=== PATIENT | male | born 1960 | race Caucasian/White ===

== ENCOUNTER 2016-10-25 19:01 | Emergency (ER) | payer BC, OTHER ==
[~2016-10-25 19:01] MED LIST: ALPH1CAP2 PO; HUMALOG SQ; LEVO200T4 PO; NIAC500T5 PO; OMEGCAP PO; RAMI2.5C PO; VITA500030 CHEW; ZOLO100T PO
[2016-10-25] MEDS ORDERED: CYCL1TAB29 PO (19:11)
[2016-10-25 19:12] VITALS: BP 139/69; PULSE 87; RESP 20; TEMP 98; O2SAT 99
[2016-10-25] MEDS ORDERED: DIPHTH/TETANUS/ACEL PERTUSSIS (BOOSTER) 0.5 ML VIAL/PFS IM ONE (19:30)
[2016-10-25] MEDS ORDERED: MORPHINE SULFATE 4 MG/ML INJ IV PUSH ONE (19:30)
[2016-10-25] MEDS ORDERED: LIDOCAINE HCL 2% 20 ML VIAL INFIL ONE (19:30)
[2016-10-25] MEDS ORDERED: AMPICILLIN-SULBACTAM INJ 3 GM in SODIUM CHLORIDE 0.9% INJ 100 ML IV ONE (19:30)
--- NOTE | 2016-10-25 21:39 | PD ---
HPI Chief Complaint: Bite or Sting Time Seen by Provider: 19:10 Travel History International Travel<30 days: No Contact w/Intl Traveler<30days: No Traveled to known affect area: No History of Present Illness HPI Patient is a 55-year-old male comes in after he was attacked [place] a dog [place] the dog park. He says he was just walking when 2 dogs came up to him and bit him. He sustained a large bite to his right leg as well as injury to his right thumb and his back. He denies any other injuries. He does not know if the dog was vaccinated. He does not know his last tetanus vaccine was. PFSH Past Medical History Cancer: No Cardiovascular Problems: No Diabetes: Yes Patient Takes Glucophage: No Endocrine: Yes Genitourinary: No Hepatitis: No Hiatal Hernia: No Immune Disorder: No Musculoskeletal: Yes ("BACK ISSUES") Neurologic: No Psychiatric: No Reproductive: No Respiratory: No Thyroid Disease: Yes Past Surgical History Abdominal Surgery: No AICD: No Body Medical Devices: N/A Cardiac Surgery: No Ear Surgery: No Eye Surgery: No Genitourinary Surgery: No Joint Replacement: No Oral Surgery: Yes (CROWNS) Pacemaker: No Thoracic Surgery: No Other Surgery: Yes Social History Alcohol Use: No Tobacco Use: No Substance Use: No Allergies-Medications (Allergen,Severity, Reaction): Coded Allergies: Sulfa (Verified Allergy, Mild, nausea, 10/25/16) Reported Meds & Prescriptions Reported Meds & Active Scripts Active Augmentin (Amoxicillin-Clavulanate) 875-125 mg Tab 875 Mg PO BID 10 Days not for use in CrCl <30 ml/min. Reported Flexeril (Cyclobenzaprine HCl) 10 Mg Tab 10 Mg PO TID Humalog Inj (Insulin Human Lispro) 1,000 Unit/10 Ml Vial 5-25 Units SQ ACHS Max dose at bedtime:( )units; sugars < 70,(0)units; sugars 150-199,(5)units; sugars 200-249,(10)units; sugars 250-299,(15)units; sugars 300-349,(20)units; sugars more than 349,(25)units. Zoloft (Sertraline HCl) 100 Mg Tab 100 Mg PO DAILY Ramipril 2.5 Mg Cap 2.5 Mg PO DAILY [place]-3 Fish Oil/Vitamin (Fish Oil-Cholecalciferol) 1,000-1,000 Mg Cap 1 Cap PO DAILY Niacin 500 Mg Tab 500 Mg PO BID Levothyroxine (Levothyroxine Sodium) 200 Mcg Tab 200 Mcg PO DAILY Vitamin D3 (Cholecalciferol) 5,000 Unit Chew 5,000 Units CHEW DAILY Alpha Lipoic Acid 100 Mg Cap 100 Mg PO DIRECTED Review of Systems Except as stated in HPI: all other systems reviewed are Neg General / Constitutional: No: Fever HENT: No: Headaches, Lightheadedness Cardiovascular: No: Chest Pain or Discomfort Respiratory: No: Shortness of Breath Gastrointestinal: No: Nausea, Vomiting Genitourinary: No: Flank Pain Musculoskeletal: Positive: Pain, No: Weakness Skin: Positive Other (lacerations) Neurologic: No: Weakness Physical Exam Narrative GENERAL: Awake and alert, in mild distress due to pain. SKIN: Warm and dry. Large triangular laceration to the medial aspect of the right calf with a 5 cm linear laceration to the posterior aspect of the left calf. Abrasion to the right side of the back. Superficial laceration to the right thumb. HEAD: Atraumatic. Normocephalic. EYES: Pupils equal and round. No scleral icterus. ENT: Mucous membranes pink and moist. NECK: Trachea midline. No JVD. CARDIOVASCULAR: Regular rate and rhythm. No murmur appreciated. RESPIRATORY: No accessory muscle use. Clear to auscultation. Breath sounds equal bilaterally. MUSCULOSKELETAL: No obvious deformities. No clubbing. No cyanosis. No edema. No tendon involvement seen through the laceration. Able to fully dorsiflex and plantar flex his right foot. Pedal pulses intact. NEUROLOGICAL: Awake and alert. No obvious cranial nerve deficits. Motor grossly within normal limits. Normal speech. PSYCHIATRIC: Appropriate mood and affect; insight and judgment normal. Data Data Last Documented VS Vital Signs Date Time Temp Pulse Resp B/P Pulse Ox O2 Delivery O2 Flow Rate FiO2 10/25/16 19:15 87 10/25/16 19:12 98.0 20 139/69 99 Orders Ampicillin-Sulbactam Inj (Unasyn Inj) (10/25/16 19:30) Bdra-Zzw-Kwsqgi (Booster) Inj (Boostrix (10/25/16 19:30) Morphine Inj (Morphine Inj) (10/25/16 19:30) Lidocaine 2% Inj (Xylocaine 2% Inj) (10/25/16 19:30) Tibia/Fibula (Ap/Lat) (10/25/16 ) Lidocai-Epi 1%-1:100,000 Inj (Xylocaine- (10/25/16 21:45) Morphine Inj (Morphine Inj) (10/25/16 21:45) Rabies Immune Globulin Inj (Hyperrab S/D (10/25/16 22:00) Rabies Vaccine Human Cell Inj (Imovax In (10/25/16 22:00) Calcium Carbonate Chew (Tums Chew) (10/25/16 22:15) MDM Medical Decision Making Medical Screen Exam Complete: Yes Emergency Medical Condition: Yes Differential Diagnosis Laceration versus dog bite versus infected wound Narrative Course Patient is a 55-year-old male comes in after 2 dogs bit him. Exam shows large lacerations to the right leg, with superficial wounds to his right thumb and that the right side of his back. X-ray performed of the right leg shows no retained foreign bodies. Patient given a dose of Unasyn, tetanus updated. Given morphine for pain. Lacerations loosely approximated by TRIPP Vincent. Patient advised to return in 2 days for wound check. Given rabies vaccine as well as rabies immunoglobulin. Patient given scheduled to return for remaining rabies vaccines. Given a prescription for Augmentin. Advised to take all of the antibiotic. Advised to return immediately for any signs of infection to the leg. Advised to return for any worsening symptoms. Diagnosis Primary Impression: Dog bite Qualified Code: W54.0XXA - Dog bite, initial encounter Additional Impression: Laceration Patient Instructions: General Instructions, Laceration (ED), Rabies Vaccine (ED ) Additional Instructions: Return in 3 days for a wound check and second rabies vaccine. Return immediately if the wound becomes red, more painful, warm to the touch or is oozing pus. You need to return in 3 days, 7, days, 14 days for additional rabies vaccines. Return as needed for any worsening symptoms. Make sure you take all of your antibiotics. Scripts Oxycodone-Acetaminophen (Percocet)5-325 mg Tab1 Tab PO Q6H PRN (PAIN) #10 TAB Ref 0 Prov:Irena Fonseca MD 10/26/16 Amoxicillin-Clavulanate (Augmentin)875-125 mg [id number] Mg PO BID 10 Days Ref 0 not for use in CrCl <30 ml/min. Prov:Irena Fonseca MD 10/25/16 Disposition: 01 DISCHARGE HOME Condition: Stable Irena Fonseca MD Oct 25, 2016 21:39
[2016-10-25] MEDS ORDERED: LIDOCAINE 1%/EPINEPHrine 1:100,000 SOLN 20 ML VIAL INFIL ONE (21:45)
[2016-10-25] MEDS ORDERED: MORPHINE SULFATE 8 MG/ML INJ IV PUSH ONE (21:45)
[2016-10-25] MEDS ORDERED: RABIES IMMUNE GLOBULIN INJ 1,500 UNITS/10 ML VIAL IM ONE (22:00)
[2016-10-25] MEDS ORDERED: RABIES VACCINE HUMAN DIPL CELL 2.5 UNITS/ML SYRINGE IM ONE (22:00)
[2016-10-25] MEDS ORDERED: CALCIUM CARBONATE 500 MG CHEWABLE TAB CHEW ONE (22:15)
--- NOTE | 2016-10-25 22:37 | RADRPT ---
EXAM DATE/TIME: 10/25/2016 21:21 [facility] COMPARISON: No previous studies available for comparison. INDICATIONS : Laceration, Patient bitten by a pitbull. MEDICAL HISTORY : None. SURGICAL HISTORY : None. ENCOUNTER: Initial ACUITY: 1 day PAIN SCORE: 6/10 LOCATION: Right Tib/Fib FINDINGS: Two view examination of the right tibia demonstrates no evidence of fracture or dislocation. Bony mi neralization is normal. The soft tissue structures are lacerated medially CONCLUSION: 1. Laceration is present medial calf. No radiopaque foreign body or acute bony abnormality. Ethan Obrien MD on October 25, 2016 at 22:35 Board Certified Radiologist. This report was verified electronically.
--- NOTE | 2016-10-25 22:49 | PD ---
Physical Exam Time Seen by Provider: 22:00 Data Data Last Documented VS Vital Signs Date Time Temp Pulse Resp B/P Pulse Ox O2 Delivery O2 Flow Rate FiO2 10/25/16 19:15 87 10/25/16 19:12 98.0 20 139/69 99 Orders Ampicillin-Sulbactam Inj (Unasyn Inj) (10/25/16 19:30) Iezr-Hfj-Rnxccx (Booster) Inj (Boostrix (10/25/16 19:30) Morphine Inj (Morphine Inj) (10/25/16 19:30) Lidocaine 2% Inj (Xylocaine 2% Inj) (10/25/16 19:30) Tibia/Fibula (Ap/Lat) (10/25/16 ) Lidocai-Epi 1%-1:100,000 Inj (Xylocaine- (10/25/16 21:45) Morphine Inj (Morphine Inj) (10/25/16 21:45) Rabies Immune Globulin Inj (Hyperrab S/D (10/25/16 22:00) Rabies Vaccine Human Cell Inj (Imovax In (10/25/16 22:00) Calcium Carbonate Chew (Tums Chew) (10/25/16 22:15) MDM Medical Record Reviewed: Yes Supervised Visit with COLLIN: No Narrative Course I have been asked to repair this patient's dog bite wound on the right calf. On examination he has a 10 cm L-shaped laceration to the medial right, 5 cm linear laceration to the posterior right calf. There is a small amount of fascial damage on the medial laceration muscle belly appears intact. Tibia- fibula x-ray reveals no radiopaque foreign body. The lacerations were irrigated with several liters of normal saline and debrided during wound repair. The wounds were loosely closed. Patient verbally consented for laceration repair. Please see sravan procedure Notes. Procedures Procedure Narrative LACERATION LOCATION: Medial right calf LENGTH: 10 cm NUMBER OF STITCHES/CARL: 7 REPAIR: The area of the laceration was prepped with Betadine and sterilely draped. The laceration was infiltrated with percent lidocaine with epinephrine. The wound was copiously irrigated and explored without evidence of foreign body, tendon injury or neurovascular injury. The wound was closed using 4-0 prolene simple interrupted. This was a single layer repair. A sterile dressing was applied. The patient was advised to keep the dressing clean and dry. Patient tolerated the procedure well. LACERATION LOCATION: Medial right calf LENGTH: 5 cm NUMBER OF STITCHES/CARL: 4 REPAIR: The area of the laceration was prepped with Betadine and sterilely draped. The laceration was infiltrated with percent lidocaine with epinephrine. The wound was copiously irrigated and explored without evidence of foreign body, tendon injury or neurovascular injury. The wound was closed using 4-0 prolene simple interrupted. This was a single layer repair. A sterile dressing was applied. The patient was advised to keep the dressing clean and dry. Patient tolerated the procedure well. Kyrie Interiano Oct 25, 2016 22:49
[2016-10-25] MEDS ORDERED: AUGM875T PO (23:04)
[2016-10-26] MEDS ORDERED: PERC5TAB12 PO (00:06)
== END 2016-10-26 00:19 | disposition home or self-care (01) ==
LOC: NEPC 19:01
DX: S81.851A Open bite, right lower leg, initial encounter (principal); S61.011A Laceration without foreign body of right thumb without damage to nail, initial encounter; S30.810A Abrasion of lower back and pelvis, initial encounter; Z23 Encounter for immunization; W54.0XXA Bitten by dog, initial encounter
CPT/HCPCS: 12005; 73590; 90375; 90471; 90472; 90675; 90715; 96365; 96372; 96375; 96376; 99283; J0295; J2270

== ENCOUNTER 2016-10-28 11:15 | Emergency (ER) | payer BC ==
[~2016-10-28] VITALS: Ht 177.8 cm; Wt 80.0 kg
[~2016-10-28 11:15] MED LIST changes: +AUGM875T PO; +CYCL1TAB29 PO; +PERC5TAB12 PO
[2016-10-28 11:16] VITALS: BP 128/62; PULSE 98; RESP 12; TEMP 97.2; O2SAT 100
--- NOTE | 2016-10-28 12:39 | PD ---
HPI Chief Complaint: Bite or Sting Time Seen by Provider: 12:35 Travel History International Travel<30 days: No Contact w/Intl Traveler<30days: No Traveled to known affect area: No History of Present Illness HPI 55-year-old male presents to the emergency department for wound recheck and day 3 rabies vaccination after being bit by a dog on Thursday and being seen here for repair of the laceration and initiation of rabies protocol. Patient denies fever, chills, nausea, vomiting. Denies paresthesias, loss of sensation, decreased range of motion, decreased strength to the affected extremity. Denies purulent drainage, erythema to the affected site. Has been cleaning the laceration sites and applying antibiotic cream and keeping the area covered. Has been taking Augmentin that he was prescribed as prescribed. History of type 1 diabetes. Allergies to sulfa. No other modifying factors or associated signs and symptoms. PFSH Past Medical History Cancer: No Cardiovascular Problems: No Diabetes: Yes (TYPE 1) Endocrine: Yes Genitourinary: No Hepatitis: No Hiatal Hernia: No Immune Disorder: No Musculoskeletal: Yes ("BACK ISSUES") Neurologic: No Psychiatric: No Reproductive: No Respiratory: No Thyroid Disease: Yes Past Surgical History Abdominal Surgery: No AICD: No Body Medical Devices: N/A Cardiac Surgery: No Ear Surgery: No Eye Surgery: No Genitourinary Surgery: No Joint Replacement: No Oral Surgery: Yes (CROWNS) Pacemaker: No Thoracic Surgery: No Other Surgery: Yes Social History Alcohol Use: No Tobacco Use: No Substance Use: No Allergies-Medications (Allergen,Severity, Reaction): Coded Allergies: Sulfa (Verified Allergy, Mild, nausea, 10/25/16) Reported Meds & Prescriptions Reported Meds & Active Scripts Active Percocet (Oxycodone-Acetaminophen) 5-325 mg Tab 1 Tab PO Q6H PRN Augmentin (Amoxicillin-Clavulanate) 875-125 mg Tab 875 Mg PO BID 10 Days not for use in CrCl <30 ml/min. Reported Flexeril (Cyclobenzaprine HCl) 10 Mg Tab 10 Mg PO TID Humalog Inj (Insulin Human Lispro) 1,000 Unit/10 Ml Vial 5-25 Units SQ ACHS Max dose at bedtime:( )units; sugars < 70,(0)units; sugars 150-199,(5)units; sugars 200-249,(10)units; sugars 250-299,(15)units; sugars 300-349,(20)units; sugars more than 349,(25)units. Zoloft (Sertraline HCl) 100 Mg Tab 100 Mg PO DAILY Ramipril 2.5 Mg Cap 2.5 Mg PO DAILY [place]-3 Fish Oil/Vitamin (Fish Oil-Cholecalciferol) 1,000-1,000 Mg Cap 1 Cap PO DAILY Niacin 500 Mg Tab 500 Mg PO BID Levothyroxine (Levothyroxine Sodium) 200 Mcg Tab 200 Mcg PO DAILY Vitamin D3 (Cholecalciferol) 5,000 Unit Chew 5,000 Units CHEW DAILY Alpha Lipoic Acid 100 Mg Cap 100 Mg PO DIRECTED Review of Systems Except as stated in HPI: all other systems reviewed are Neg Physical Exam Narrative GENERAL: Well-nourished, well-developed male patient, in no acute distress; afebrile, nontoxic-appearing SKIN: Warm and dry. Lacerations to right calf are well approximated and sutures intact; without erythema, edema, drainage. No signs of infection. The right lower extremity is supple and non-tense with 2+ pedal pulse and sensory intact. HEAD: Atraumatic. Normocephalic. EYES: Pupils equal and round. No scleral icterus. No injection or drainage. ENT: Mucosa pink and moist. Airway patent. NECK: Trachea midline. CARDIOVASCULAR: Regular rate. RESPIRATORY: No accessory muscle use. GASTROINTESTINAL: Flat. MUSCULOSKELETAL: No obvious deformities. No clubbing. No cyanosis. No edema. NEUROLOGICAL: Awake and alert. Oriented 3. No obvious cranial nerve deficits. Motor grossly within normal limits. Normal speech. PSYCHIATRIC: Appropriate mood and affect; insight and judgment normal. Data Data Last Documented VS Vital Signs Date Time Temp Pulse Resp B/P Pulse Ox O2 Delivery O2 Flow Rate FiO2 10/28/16 12:35 77 18 10/28/16 11:16 97.2 128/62 100 Room Air Orders Rabies Vaccine Human Cell Inj (Imovax In (10/28/16 12:45) Wound Care (10/28/16 12:34) MDM Medical Decision Making Medical Screen Exam Complete: Yes Emergency Medical Condition: Yes Medical Record Reviewed: Yes Differential Diagnosis Encounter for wound recheck, encounter for repeated menstruation of rabies vaccination, dog bite Narrative Course 55-year-old male presents for wound recheck and day 3 rabies vaccination administration after being bit by dog on Thursday. The laceration sites are well approximated and sutures intact and without signs of infection. Patient is afebrile. He has prescription for Augmentin and has been taking it as prescribed. He denies fever, chills, nausea, vomiting. Concerta patient to continue Augmentin as prescribed and he verbalized understanding and agreement. Day 3 rabies vaccination ordered. Instructed patient to return for day 14 rabies vaccination and he verbalizes understanding and agreement. Wound care provided in the ER. Patient is medically cleared and stable for discharge. Discussed reasons to return to the emergency department. Instructed patient to follow up with primary care provider. Patient agrees with treatment plan. The patients vital signs are stable and the patient is stable for outpatient follow- up and treatment. Patient discharged home, stable and in no acute distress. Diagnosis Primary Impression: Encounter for repeat administration of rabies vaccination Additional Impression: Encounter for wound re-check Referrals: Primary Care Physician Patient Instructions: Acute Wound Care (ED), Animal Bite (ED), Care For Your Stitches (ED), General Instructions Additional Instructions: Return to emergency department or follow-up at the health Department on day 14 for rabies vaccination Keep area clean and dry Ibuprofen or Tylenol as directed and as needed for pain and inflammation Ice pack to area as needed to decrease pain Return to the emergency department or follow-up with primary care provider between 14 and 28 days from today of suturing for suture removal Follow up with primary care provider Return to the emergency department immediately with worsening of symptoms, particularly if reddened streaks up or down the affected extremity from the suture site, fever, numbness/tingling in the affected extremity, loss of sensation in the affected extremity, severe swelling of the affected Med/Other Pt SpecificInfo: No Change to Meds Disposition: 01 DISCHARGE HOME Condition: Stable Julia Noe Oct 28, 2016 12:39
[2016-10-28] MEDS ORDERED: RABIES VACCINE HUMAN DIPL CELL 2.5 UNITS/ML SYRINGE IM ONE (12:45)
== END 2016-10-28 13:39 | disposition home or self-care (01) ==
LOC: NEPB 11:15
DX: S81.851D Open bite, right lower leg, subsequent encounter (principal); W54.0XXD Bitten by dog, subsequent encounter; Z23 Encounter for immunization
CPT/HCPCS: 90471; 90675

== ENCOUNTER 2016-11-01 09:47 | Emergency (ER) | payer BC ==
[~2016-11-01] VITALS: Ht 177.8 cm; Wt 77.0 kg
[2016-11-01 09:54] VITALS: BP 119/71; PULSE 98; RESP 16; TEMP 98.7; O2SAT 98
[2016-11-01] MEDS ORDERED: RABIES VACCINE CHICK EMB INJ 2.5 UNITS/ML SYR IM ONE (10:15)
--- NOTE | 2016-11-01 10:19 | PD ---
HPI Chief Complaint: Wound/Suture/Staple Re-Check Time Seen by Provider: 10:04 Travel History International Travel<30 days: No Contact w/Intl Traveler<30days: No Traveled to known affect area: No History of Present Illness HPI Patient is a 55-year-old male who presents to emergency room for reevaluation of dogbite. Patient was bitten by a pit bull on Thursday and suffered a laceration to his right calf. Patient had sutures placed and was started on Augmentin. Rabies vaccinations were initiated, patient here for wound check and for rabies vaccination. Patient did have his day 3 vaccination, patient here for his day 7 vaccination. Patient with no fevers or chills. Patient with no other complaints. PFSH Past Medical History Cancer: No Cardiovascular Problems: No Diabetes: Yes (TYPE 1) Patient Takes Glucophage: No Endocrine: Yes Gastrointestinal Disorders: No Genitourinary: No Hepatitis: No Hiatal Hernia: No Hypertension: No Immune Disorder: No Musculoskeletal: Yes ("BACK ISSUES") Neurologic: No Psychiatric: No Reproductive: No Respiratory: No Immunizations Current: Yes Thyroid Disease: Yes Influenza Vaccination: No Past Surgical History Abdominal Surgery: No AICD: No Body Medical Devices: N/A Cardiac Surgery: No Ear Surgery: No Eye Surgery: No Genitourinary Surgery: No Joint Replacement: No Neurologic Surgery: No Oral Surgery: Yes (CROWNS) Pacemaker: No Thoracic Surgery: No Other Surgery: Yes Social History Alcohol Use: No Tobacco Use: No Substance Use: No Allergies-Medications (Allergen,Severity, Reaction): Coded Allergies: Sulfa (Verified Allergy, Mild, nausea, 11/01/16) Reported Meds & Prescriptions Reported Meds & Active Scripts Active Percocet (Oxycodone-Acetaminophen) 5-325 mg Tab 1 Tab PO Q6H PRN Augmentin (Amoxicillin-Clavulanate) 875-125 mg Tab 875 Mg PO BID 10 Days not for use in CrCl <30 ml/min. Reported Flexeril (Cyclobenzaprine HCl) 10 Mg Tab 10 Mg PO TID Humalog Inj (Insulin Human Lispro) 1,000 Unit/10 Ml Vial 5-25 Units SQ ACHS Max dose at bedtime:( )units; sugars < 70,(0)units; sugars 150-199,(5)units; sugars 200-249,(10)units; sugars 250-299,(15)units; sugars 300-349,(20)units; sugars more than 349,(25)units. Zoloft (Sertraline HCl) 100 Mg Tab 100 Mg PO DAILY Ramipril 2.5 Mg Cap 2.5 Mg PO DAILY [place]-3 Fish Oil/Vitamin (Fish Oil-Cholecalciferol) 1,000-1,000 Mg Cap 1 Cap PO DAILY Niacin 500 Mg Tab 500 Mg PO BID Levothyroxine (Levothyroxine Sodium) 200 Mcg Tab 200 Mcg PO DAILY Vitamin D3 (Cholecalciferol) 5,000 Unit Chew 5,000 Units CHEW DAILY Alpha Lipoic Acid 100 Mg Cap 100 Mg PO DIRECTED Review of Systems General / Constitutional: No: Fever Eyes: No: Visual changes HENT: No: Headaches Cardiovascular: No: Chest Pain or Discomfort Respiratory: No: Shortness of Breath Gastrointestinal: No: Abdominal Pain Genitourinary: No: Dysuria Musculoskeletal: No: Pain Skin: No Rash Neurologic: No: Weakness Psychiatric: No: Depression Endocrine: No: Polydipsia Hematologic/Lymphatic: No: Easy Bruising Physical Exam Narrative GENERAL: Well-nourished, well-developed patient. SKIN: Warm and dry. HEAD: Normocephalic. EYES: No scleral icterus. No injection or drainage. NECK: Supple, trachea midline. No JVD or lymphadenopathy. CARDIOVASCULAR: Regular rate and rhythm without murmurs, gallops, or rubs. RESPIRATORY: Breath sounds equal bilaterally. No accessory muscle use. GASTROINTESTINAL: Abdomen soft, non-tender, nondistended. MUSCULOSKELETAL: No cyanosis, or edema. Right calf with healing wounds, incisions are clean/dry/intact with no obvious drainage or infection or streaking BACK: Nontender without obvious deformity. No CVA tenderness. Data Data Last Documented VS Vital Signs Date Time Temp Pulse Resp B/P Pulse Ox O2 Delivery O2 Flow Rate FiO2 11/01/16 09:54 98.7 98 16 119/71 98 MDM Medical Decision Making Medical Screen Exam Complete: Yes Emergency Medical Condition: Yes Interpretation(s) Vital Signs Date Time Temp Pulse Resp B/P Pulse Ox O2 Delivery O2 Flow Rate FiO2 11/01/16 09:54 98.7 98 16 119/71 98 Differential Diagnosis Wound check, rabies vaccination Narrative Course Patient is a 55-year-old male who presents to emergency room for reevaluation of dogbite. Patient was bitten by a pit bull on Thursday and suffered a laceration to his right calf. Patient had sutures placed and was started on Augmentin. Rabies vaccinations were initiated, patient here for wound check and for rabies vaccination. Patient did have his DAY 3 rabies vaccination already, patient here for his day 7 rabies vaccination. Patient with no fevers or chills or no signs of infection to right calf. Patient has healing wound to his right calf. There is no drainage from the area. Patient has been taking his antibiotics as prescribed. Will give patient his rabies vaccination. Patient will return on the for the last vaccination. Signs and symptoms of when to return to the emergency room was reviewed with patient in detail. Diagnosis Primary Impression: Encounter for wound re-check Additional Impression: Encounter for repeat administration of rabies vaccination Patient Instructions: General Instructions Additional Instructions: Please complete full course of antibiotics as prescribed Return to the emergency room as needed or if you develop any signs of infection Return to the emergency room on November 11 (Day 14) for your last vaccination Disposition: 01 DISCHARGE HOME Condition: Stable Amy Harmon DO Nov 01, 2016 10:18
== END 2016-11-01 10:45 | disposition home or self-care (01) ==
LOC: PHED 09:47
DX: S81.851A Open bite, right lower leg, initial encounter (principal); Z51.89 Encounter for other specified aftercare; W54.0XXD Bitten by dog, subsequent encounter
CPT/HCPCS: 90471; 90675

== ENCOUNTER 2016-11-09 10:12 | Emergency (ER) | payer BC ==
[2016-11-09] MEDS ORDERED: RABIES VACCINE CHICK EMB INJ 2.5 UNITS/ML SYR IM ONE (11:00)
--- NOTE | 2016-11-09 11:03 | PD ---
HPI Chief Complaint: Bite or Sting Time Seen by Provider: 10:47 Travel History International Travel<30 days: No Contact w/Intl Traveler<30days: No Traveled to known affect area: No History of Present Illness HPI This 55-year-old male is here for rabies vaccination. He was bitten by a dog and is getting his last vaccination today. The wound was on his leg and has been sutured. He has no complaints of fever or chills. The wound appears to be healing well. He is seeing his primary care doctor who plans to remove the stitches on Thursday Past Medical History Cancer: No Cardiovascular Problems: No Diabetes: Yes (TYPE 1) Patient Takes Glucophage: No Endocrine: Yes Gastrointestinal Disorders: No Genitourinary: No Hepatitis: No Hiatal Hernia: No Hypertension: No Immune Disorder: No Medical other: No Musculoskeletal: Yes ("BACK ISSUES") Neurologic: No Psychiatric: No Reproductive: No Respiratory: No Immunizations Current: Yes Thyroid Disease: Yes Past Surgical History Abdominal Surgery: No AICD: No Body Medical Devices: N/A Cardiac Surgery: No Ear Surgery: No Eye Surgery: No Genitourinary Surgery: No Joint Replacement: No Neurologic Surgery: No Oral Surgery: Yes (CROWNS) Pacemaker: No Thoracic Surgery: No Other Surgery: Yes Social History Alcohol Use: No Tobacco Use: No (FORMER) Substance Use: No Allergies-Medications (Allergen,Severity, Reaction): Coded Allergies: Sulfa (Verified Allergy, Mild, nausea, 11/09/16) Reported Meds & Prescriptions Reported Meds & Active Scripts Active Percocet (Oxycodone-Acetaminophen) 5-325 mg Tab 1 Tab PO Q6H PRN Reported Flexeril (Cyclobenzaprine HCl) 10 Mg Tab 10 Mg PO TID Humalog Inj (Insulin Human Lispro) 1,000 Unit/10 Ml Vial 5-25 Units SQ ACHS Max dose at bedtime:( )units; sugars < 70,(0)units; sugars 150-199,(5)units; sugars 200-249,(10)units; sugars 250-299,(15)units; sugars 300-349,(20)units; sugars more than 349,(25)units. Zoloft (Sertraline HCl) 100 Mg Tab 100 Mg PO DAILY Ramipril 2.5 Mg Cap 2.5 Mg PO DAILY [place]-3 Fish Oil/Vitamin (Fish Oil-Cholecalciferol) 1,000-1,000 Mg Cap 1 Cap PO DAILY Niacin 500 Mg Tab 500 Mg PO BID Levothyroxine (Levothyroxine Sodium) 200 Mcg Tab 200 Mcg PO DAILY Vitamin D3 (Cholecalciferol) 5,000 Unit Chew 5,000 Units CHEW DAILY Alpha Lipoic Acid 100 Mg Cap 100 Mg PO DIRECTED Review of Systems General / Constitutional: No: Fever, Chills Musculoskeletal: No: Myalgias Skin: No Itching Physical Exam Narrative Wound on the leg is healing without evidence of infection. Data Data Orders Rabies Vaccine Chick Emb Inj (Rabavert I (11/09/16 11:00) [facility] Medical Decision Making Medical Screen Exam Complete: Yes Emergency Medical Condition: Yes Medical Record Reviewed: Yes Differential Diagnosis Differential includes healing wound, rabies vaccination Narrative Course Patient received his final dose of rabies vaccination Diagnosis Primary Impression: Encounter for repeat administration of rabies vaccination Disposition: 01 DISCHARGE HOME Condition: Stable Humza Barney MD Nov 09, 2016 11:03
== END 2016-11-09 11:15 | disposition home or self-care (01) ==
LOC: PHEFT 10:12
DX: S81.859D Open bite, unspecified lower leg, subsequent encounter (principal); W54.0XXD Bitten by dog, subsequent encounter; Z23 Encounter for immunization
CPT/HCPCS: 90471; 90675